=== PATIENT | male | born 1965 | race Caucasian/White ===

== ENCOUNTER 2017-10-12 19:41 | Emergency (ER) | payer BC ==
[~2017-10-12] VITALS: Ht 185.4 cm; Wt 123.4 kg
[~2017-10-12 19:41] MED LIST: ASPIRIN325 MG PO; LOTREL 10/21 CAPSULE PO; MULTIVITAMIN1 EAC2 PO; ZYRTEC5 MG PO; [UNRECOGNIZED DRUG - REMARK]
[2017-10-12 21:11] LABS: BASOPHIL COUNT 0.1 K/uL (0-0.1); EOSINOPHIL (%) 3.5 % (0-5); EOSINOPHIL COUNT 0.3 K/uL (0-0.3); HEMATOCRIT 43.1 % (38.0-50.0); IMMATURE GRANULOCYTE (%) 0.3 % (0.0-0.7); MCH 29.2 PG (29.0-34.0); MCHC 33.9 G/DL (30.0-36.0); MCV 86.2 FL (86-99); MEAN PLAT.VOLUME 9.6 uM^3 (9.0-12.4); MONOCYTE (%) 18.4 % (3-12); MONOCYTE COUNT 1.7 K/uL (0-0.8); PLATELET COUNT 317 K/uL (156-360); RBC DIS.WIDTH-CV 12.7 % (11.8-14.6); RBC DIS.WIDTH-SD 40.1 % (39-53); WHITE BLOOD COUNT 9.1 K/uL (4.1-10.2)
[2017-10-12 21:23] LABS: CHLORIDE 106 mEq/L (99-109); POTASSIUM 3.7 mEq/L (3.7-5.4); SODIUM 138 mEq/L (136-147)
[2017-10-12 21:25] LABS: GLUCOSE 114 mg/dL (70-99)
[2017-10-12 21:26] LABS: ANION GAP 7 MEQ/L (2-14)
[2017-10-12 21:29] LABS: GFR ESTIMATE (CALCULATED) > 59 mL/min/
[2017-10-12 21:30] LABS: D-DIMER ELISA < 150.00 ng/mLDDU (<230)
[2017-10-12 21:30] LABS: UREA NITROGEN (BUN) 14 mg/dL (9-23)
[2017-10-12] MEDS ORDERED: OXYCODONE HCL10 MG PO (22:16)
[2017-10-12 22:20] LABS: C-REACTIVE PROTEIN 26.6 MG/L (0-10)
[2017-10-12 22:24] VITALS: BP 137/116
[2017-10-12 22:47] LABS: ERTH.SED.RATE 29 MM/HR (0-20)
[2017-10-14 10:06] LABS: LYME DISEASE SEROLOGY SCREEN NEGATIVE (NEGATIVE)
== END 2017-10-12 22:25 | disposition home or self-care (01) ==
LOC: EME 19:41
PROVIDERS: Physician Assistant
DX: M25.571 Pain in right ankle and joints of right foot (principal); M25.471 Effusion, right ankle
CPT/HCPCS: 73610; 80048; 85025; 85379; 85651; 86140; 86618; 99281; 99283; J3010